=== PATIENT | female | born 1985 | race American Indian/Alaskan Native ===

== ENCOUNTER 2021-09-26 10:18 | Emergency (ER) | payer OTHER ==
[~2021-09-26] VITALS: Ht 160 cm; Wt 87.2 kg
[2021-09-26] MEDS ORDERED: ALBUTEROL SULFATE 2.5 MG/0.5 ML INH NEB SOLN NEB ONE (13:40)
[2021-09-26] MEDS ORDERED: predniSONE 20 MG TAB PO ONE (13:40)
[2021-09-26] MEDS ORDERED: BENZONATATE 100MG CAPSULE PO ONE (13:50)
[2021-09-26] MEDS ORDERED: PRED20TA PO (14:30)
[2021-09-26] MEDS ORDERED: [UNRECOGNIZED DRUG - CODE] XX (14:30)
[2021-09-26] MEDS ORDERED: BENZ200C70 PO (14:30)
[2021-09-26 14:47] VITALS: BP 129/67
== END 2021-09-26 15:00 | disposition home or self-care (01) ==
LOC: M ED 10:18
DX: J45.901 Unspecified asthma with (acute) exacerbation (principal); J06.9 Acute upper respiratory infection, unspecified
CPT/HCPCS: 71046; 87486; 87581; 87633; 87798; 99283; J7512

== ENCOUNTER → 2021-10-04 | Outpatient (CLI) | payer OTHER ==
[~2021-10-04] MED LIST: BENZ200C70 PO; PRED20TA PO; [UNRECOGNIZED DRUG - CODE] XX
== END ==
LOC: M CARPUL 08:58 → EDUNIT# 09:00
PROVIDERS: ATTEND Emergency Medicine
DX: R06.2 Wheezing (principal)

== ENCOUNTER 2022-01-09 17:23 | Emergency (ER) | payer OTHER ==
[~2022-01-09] VITALS: Ht 160 cm; Wt 87.8 kg
[2022-01-09 17:24] VITALS: BP 130/62
[2022-01-09] MEDS ORDERED: BOOSTRIX/ADACEL VACCINE (DIPHTH/PERTUSS/ACELL/TETANUS) 0.5ML SYR IM ONE (19:15)
[2022-01-09] MEDS ORDERED: ACETAMINOPHEN 325 MG TAB PO ONE (19:15)
== END 2022-01-09 19:57 | disposition home or self-care (01) ==
LOC: M ED 17:23
DX: S93.402A Sprain of unspecified ligament of left ankle, initial encounter (principal); S60.512A Abrasion of left hand, initial encounter; S80.211A Abrasion, right knee, initial encounter; W19.XXXA Unspecified fall, initial encounter; Y92.410 Unspecified street and highway as the place of occurrence of the external cause; J45.909 Unspecified asthma, uncomplicated; Z79.899 Other long term (current) drug therapy

== ENCOUNTER 2023-09-03 21:09 | Emergency (ER) | payer OTHER ==
[~2023-09-03] VITALS: Ht 160 cm; Wt 86.7 kg
[2023-09-03 21:10] VITALS: BP 137/72; TEMP 98.1; O2SAT 99
[2023-09-04] MEDS ORDERED: IBUP-1022 PO (01:30)
[2023-09-04] MEDS: IBUPROFEN 600MG TAB PO ONE (02:26)
== END 2023-09-04 02:36 | disposition home or self-care (01) ==
LOC: M ED 21:09
DX: S93.401A Sprain of unspecified ligament of right ankle, initial encounter (principal); S83.91XA Sprain of unspecified site of right knee, initial encounter; X50.1XXA Overexertion from prolonged static or awkward postures, initial encounter; Y92.410 Unspecified street and highway as the place of occurrence of the external cause; Y93.K1 Activity, walking an animal; Y99.9 Unspecified external cause status; J45.909 Unspecified asthma, uncomplicated; Z79.899 Other long term (current) drug therapy